=== PATIENT | male | born 1990 | race Two or more races ===

== ENCOUNTER 2020-12-09 11:47 | Emergency (ER) | payer MEDICAID, OTHER ==
[~2020-12-09] VITALS: Ht 188 cm; Wt 86.2 kg
[2020-12-09] MEDS ORDERED: ASPirin 81 mg TAB PO ONE (12:00)
[2020-12-09 12:33] LABS: Basophils # (auto) 0 10 ^3/uL (0-0.2); Basophils % (auto) 0.6 % (0.0-2.0); Eosinophils # (auto) 0 10 ^3/uL (0-0.8); Eosinophils % (auto) 0.6 % (0.0-7.0); Hematocrit 44.2 % (41.0-53.0); Hemoglobin 15.2 g/dL (13.5-17.5); Lymphocytes # (auto) 1.9 10 ^3/uL (0.4-5.4); Lymphocytes % (auto) 23.1 % (10.0-50.0); Mean Corpuscular Hemoglobin 32.2 pg (28.0-32.0); Mean Corpuscular Hgb Conc. 34.4 g/dL (32.0-36.0); Mean Corpuscular Volume 93.5 fL (80.0-100.0); Monocytes # (auto) 0.6 10 ^3/uL (0-1.3); Monocytes % (auto) 6.9 % (0.0-12.0); Neutrophils # (auto) 5.7 10 ^3/uL (1.6-8.6); Neutrophils % (auto) 68.8 % (37.0-80.0); Nucleated Red Blood Cells % 0.1 %; Platelet Count (auto) 188 10^3/uL (140-450); Red Blood Cells 4.73 10^6/uL (4.5-5.90); Red Cell Distribution Width 13.1 % (11.8-14.3); White Blood Cell 8.3 10^3/uL (4.4-10.8)
[2020-12-09 12:41] LABS: Albumin 4.5 g/dL (3.4-5.0); Anion Gap 4 (5-15); Calcium 8.8 mg/dL (8.5-10.1); Carbon Dioxide 29 mmol/L (21-32); Chloride 107 mmol/L (98-107); Potassium 3.7 mmol/L (3.5-5.1); Sodium 140 mmol/L (136-145)
[2020-12-09 12:49] LABS: Alanine Aminotransferase 28 U/L (16-61); Alkaline Phosphatase 53 U/L (45-117); Aspartate Aminotransferase 11 U/L (15-37); BUN/Creatinine Ratio 14.6; Bilirubin, Total 1.3 mg/dL (0.2-1.0); Blood Urea Nitrogen 12 mg/dL (7-18); GFR African American 142 mL/min; GFR Non-African American 117 mL/min; Glucose 120 mg/dL (74-106); Total Protein 7.8 g/dL (6.4-8.2)
[2020-12-09 13:00] LABS: Alcohol, Urine < 3.0 mg/dL (0-10); Amphetamine Screen, Urine NEGATIVE (NEGATIVE); Barbiturate Scree,Urine NEGATIVE (NEGATIVE); Benzodiazephine Screen, Urine NEGATIVE (NEGATIVE); Cannabinoid Screen, Urine POSITIVE (NEGATIVE); Cocaine Screen, Urine NEGATIVE (NEGATIVE); Opiate Scree,Urine NEGATIVE (NEGATIVE); Phencyclidine Screen, Urine NEGATIVE (NEGATIVE)
[2020-12-09 14:24] VITALS: BP 116/78
== END 2020-12-09 14:26 | disposition home or self-care (01) ==
LOC: ER 11:47
DX: R07.89 Other chest pain (principal); F41.9 Anxiety disorder, unspecified
CPT/HCPCS: 36415; 71045; 80053; 80307; 84443; 84484; 85025

== ENCOUNTER 2021-01-01 11:25 | Emergency (ER) | payer MEDICAID ==
[~2021-01-01] VITALS: Ht 188 cm; Wt 90.7 kg
[2021-01-01 11:31] VITALS: BP 125/83
== END 2021-01-01 14:45 | disposition home or self-care (01) ==
LOC: ER 11:25
DX: S16.1XXA Strain of muscle, fascia and tendon at neck level, initial encounter (principal); F12.10 Cannabis abuse, uncomplicated; V43.52XA Car driver injured in collision with other type car in traffic accident, initial encounter; Y93.89 Activity, other specified; Y92.89 Other specified places as the place of occurrence of the external cause; Y99.8 Other external cause status
CPT/HCPCS: 72040

== ENCOUNTER 2021-04-10 08:14 | Emergency (ER) | payer OTHER, MEDICAID ==
[~2021-04-10] VITALS: Ht 188 cm; Wt 86.2 kg
[2021-04-10 08:23] VITALS: BP 140/95
== END 2021-04-10 10:10 | disposition home or self-care (01) ==
LOC: ER 08:14
DX: K59.00 Constipation, unspecified (principal)
CPT/HCPCS: 74176

== ENCOUNTER 2021-12-10 09:33 | Emergency (ER) | payer MEDICAID, OTHER ==
[~2021-12-10] VITALS: Ht 188 cm; Wt 102.1 kg
[2021-12-10 09:42] VITALS: BP 129/62
[2021-12-10] MEDS ORDERED: IBUP800T27 PO (09:54)
[2021-12-10] MEDS ORDERED: AMOX-277 PO (09:54)
[2021-12-10] MEDS ORDERED: ALBU108A5 IN (09:54)
== END 2021-12-10 10:01 | disposition home or self-care (01) ==
LOC: ER 09:33
DX: H65.03 Acute serous otitis media, bilateral (principal); J45.909 Unspecified asthma, uncomplicated

== ENCOUNTER 2022-01-20 12:06 | Emergency (ER) | payer MEDICAID ==
[~2022-01-20] VITALS: Ht 188 cm; Wt 99.8 kg
[~2022-01-20 12:06] MED LIST: ALBU108A5 IN; AMOX-277 PO; IBUP800T27 PO
[2022-01-20 12:37] LABS: Urine Bacteria NONE SEEN /hpf (None Seen); Urine Blood Negative /uL (Negative); Urine Mucus FEW (None Seen); Urine Specific Gravity 1.015 (1.001-1.035); Urine WBC <1 /hpf (0 - 3)
[2022-01-20 13:00] VITALS: BP 142/95
== END 2022-01-20 13:50 | disposition home or self-care (01) ==
LOC: ER 12:06
DX: M54.16 Radiculopathy, lumbar region (principal); F12.10 Cannabis abuse, uncomplicated; J45.909 Unspecified asthma, uncomplicated
CPT/HCPCS: 74176; 81001

== ENCOUNTER 2022-01-22 02:34 | Emergency (ER) | payer MEDICAID ==
[~2022-01-22] VITALS: Ht 188 cm; Wt 99.8 kg
[2022-01-22 03:10] LABS: Basophils # (auto) 0.1 10 ^3/uL (0-0.2); Basophils % (auto) 0.8 % (0.0-2.0); Eosinophils # (auto) 0.2 10 ^3/uL (0-0.8); Eosinophils % (auto) 3.1 % (0.0-7.0); Hematocrit 42.1 % (41.0-53.0); Hemoglobin 14.6 g/dL (13.5-17.5); Lymphocytes # (auto) 2.5 10 ^3/uL (0.4-5.4); Mean Corpuscular Hemoglobin 31.7 pg (28.0-32.0); Mean Corpuscular Hgb Conc. 34.8 g/dL (32.0-36.0); Mean Corpuscular Volume 91.1 fL (80.0-100.0); Monocytes % (auto) 12.8 % (0.0-12.0); Neutrophils # (auto) 3.7 10 ^3/uL (1.6-8.6); Neutrophils % (auto) 49.3 % (37.0-80.0); Nucleated Red Blood Cells % 0.1 %; Red Blood Cells 4.62 10^6/uL (4.5-5.90); Red Cell Distribution Width 13.1 % (11.8-14.3); White Blood Cell 7.4 10^3/uL (4.4-10.8)
[2022-01-22 03:28] LABS: Albumin 3.8 g/dL (3.4-5.0); BUN/Creatinine Ratio 16.7; Calcium 8.5 mg/dL (8.5-10.1)
[2022-01-22 03:30] LABS: Bilirubin, Total 0.3 mg/dL (0.2-1.0); Total Protein 6.9 g/dL (6.4-8.2)
[2022-01-22 04:30] VITALS: BP 118/76
== END 2022-01-22 04:56 | disposition home or self-care (01) ==
LOC: ER 02:34
DX: K85.90 Acute pancreatitis without necrosis or infection, unspecified (principal); J45.909 Unspecified asthma, uncomplicated; Z79.2 Long term (current) use of antibiotics; Z79.1 Long term (current) use of non-steroidal anti-inflammatories (NSAID); Z79.899 Other long term (current) drug therapy
CPT/HCPCS: 36415; 80053; 82150; 83690; 85025

== ENCOUNTER 2022-08-15 09:37 | Emergency (ER) | payer MEDICAID ==
[~2022-08-15] VITALS: Ht 188 cm; Wt 95.2 kg
[2022-08-15] MEDS ORDERED: ONDA-144 PO (14:59)
[2022-08-15] MEDS ORDERED: IBUP800T27 PO (14:59)
[2022-08-15] MEDS ORDERED: AMOX-277 PO (14:59)
[2022-08-15 15:02] VITALS: BP 131/79
== END 2022-08-15 15:06 | disposition home or self-care (01) ==
LOC: ER 09:37
DX: J02.9 Acute pharyngitis, unspecified (principal); R51.9 Headache, unspecified; F12.10 Cannabis abuse, uncomplicated; J45.909 Unspecified asthma, uncomplicated

== ENCOUNTER 2024-05-29 17:04 | Emergency (ER) | payer MEDICAID ==
[~2024-05-29] VITALS: Ht 188 cm; Wt 73.8 kg
[~2024-05-29 17:04] MED LIST changes: -AMOX-277 PO; +AMOX875T4 PO; +IBUP-1456 PO; -IBUP800T27 PO; +ONDA-144 PO
[2024-05-29 17:12] VITALS: BP 138/59; PULSE 112; RESP 18; O2SAT 96
[2024-05-29 18:04] LABS: Basophils # (auto) 0 10 ^3/uL (0-0.2); Basophils % (auto) 0.3 % (0.0-2.0); Eosinophils # (auto) 0.1 10 ^3/uL (0-0.8); Eosinophils % (auto) 1.6 % (0.0-7.0); Hematocrit 36.9 % (41.0-53.0); Hemoglobin 12.6 g/dL (13.5-17.5); Lymphocytes # (auto) 2.9 10 ^3/uL (0.4-5.4); Lymphocytes % (auto) 41.9 % (10.0-50.0); Mean Corpuscular Hemoglobin 28.8 pg (28.0-32.0); Mean Corpuscular Hgb Conc. 34.1 g/dL (32.0-36.0); Mean Corpuscular Volume 84.4 fL (80.0-100.0); Monocytes % (auto) 13.9 % (0.0-12.0); Neutrophils % (auto) 42.3 % (37.0-80.0); Nucleated Red Blood Cells % 0.3 %; Red Blood Cells 4.37 10^6/uL (4.5-5.90); Red Cell Distribution Width 13.3 % (11.8-14.3)
[2024-05-29 18:05] LABS: Alanine Aminotransferase 38 U/L (7-40); Albumin 4.3 g/dL (3.2-4.8); Alkaline Phosphatase 205 U/L (46-116); Anion Gap 7 (5-15); Aspartate Aminotransferase 20 U/L (13-40); BUN/Creatinine Ratio 22.2 (10.0-20.0); Bilirubin, Total 1.8 mg/dL (0.2-1.0); Blood Urea Nitrogen 10 mg/dL (9-23); Calcium 9.4 mg/dL (8.5-10.1); Carbon Dioxide 25 mmol/L (20-30); Chloride 109 mmol/L (98-107); Glucose 96 mg/dL (74-106); Potassium 3.8 mmol/L (3.5-5.1); Sodium 141 mmol/L (136-145); Total Protein 6.7 g/dL (5.7-8.2)
== END 2024-05-29 23:59 | disposition left against medical advice (07) ==
LOC: ER 17:04
DX: R07.9 Chest pain, unspecified (principal); Z53.21 Procedure and treatment not carried out due to patient leaving prior to being seen by health care provider
CPT/HCPCS: 36415; 80053; 84484; 85025; 93005